=== PATIENT | female | born 1975 | race Hispanic/Latino ===

== ENCOUNTER 2022-10-03 08:35 | Emergency (ER) | payer OTHER ==
[~2022-10-03] VITALS: Ht 160 cm; Wt 76.2 kg
[2022-10-03 08:45] VITALS: BP 131/74
[2022-10-03 09:00] VITALS: BP 114/74
[2022-10-03] MEDS ORDERED: OFLOXACIN0.3 % OD (09:02)
[2022-10-03 09:15] VITALS: BP 136/78
[2022-10-03 09:25] VITALS: BP 136/78
== END 2022-10-03 09:20 | disposition home or self-care (01) | DRG 125 ==
LOC: ED 08:35
DX: S05.01XA Injury of conjunctiva and corneal abrasion without foreign body, right eye, initial encounter (principal); X58.XXXA Exposure to other specified factors, initial encounter; F17.210 Nicotine dependence, cigarettes, uncomplicated; E10.9 Type 1 diabetes mellitus without complications; Z79.4 Long term (current) use of insulin